=== PATIENT | female | born 1950 | race Caucasian/White ===

== ENCOUNTER 2023-01-15 07:19 | Day surgery (SDC) | payer MEDICARE, OTHER ==
[~2023-01-15] VITALS: Ht 157.5 cm; Wt 54.4 kg
[2023-01-15] MEDS ORDERED: fentaNYL citrate 0.05 MG/ML VIAL ONE (08:26)
[2023-01-15] MEDS ORDERED: MIDAZOLAM 5 MG/5 ML VIAL ONE (08:27)
== END 2023-01-15 10:13 | disposition home or self-care (01) ==
LOC: MMU 07:19 → MDS 07:19
PROVIDERS: ATTEND Internal Medicine Gastroenterology
DX: K74.60 Unspecified cirrhosis of liver (principal); K76.0 Fatty (change of) liver, not elsewhere classified; Z20.822 Contact with and (suspected) exposure to COVID-19; Z79.899 Other long term (current) drug therapy
CPT/HCPCS: 43235; 87426; J2250; J3010